=== PATIENT | female | born 1990 | race African-American/Black ===

== ENCOUNTER 2017-08-03 14:08 | Inpatient (IN) | payer OTHER ==
--- OUTSIDE RECORDS SUMMARY | 2017-08-03 14:10 | XMS REPORT ---
:1990 Author Organization [employer] Care Team Providers Name Role Phone Lydia Pa Provider Role Unavailable Allergies No Known Allergies Problems Problem Type Condition Code Onset Dates Condition Status Problem Scoliosis, unspecified scoliosis M41.9 Active type, unspecified spinal region Problem Size of fetus inconsistent with O26.843 Active dates in third trimester Problem Late care O09.30 Active Assessment Multigravida in third trimester Z34.83 Active Problem Multigravida in third trimester Z34.83 Active Assessment Late care O09.30 Active Medications No Known Medications Results No Known Results Summary Purpose [employer] Submission
[2017-08-03] MEDS ORDERED: OXYTOCIN/LR 20 UNIT/1,000 ML BAG IV ONE (14:42)
[2017-08-03] MEDS ORDERED: ACETAMINOPHEN 500 MG TAB PO PRN (14:46)
[2017-08-03] MEDS ORDERED: DOCUSATE NA/SENNA CONC 1 TAB PO PRN (14:46)
[2017-08-03] MEDS ORDERED: BISACODYL 10 MG RECTAL SUPP RECT PRN (14:46)
--- NOTE | 2017-08-03 14:49 | P.OP ---
Preoperative diagnosis: Spontaneous labor, Term romero IUP Postoperative diagnosis: Same with precipitous vaginal delivery Primary procedure: Secondary procedure: AROM Anesthesia: None Estimated blood loss: 300 cc Specimen: Placenta Findings: See operative report Operative Technique: FINDINGS: Male in LOP position. APGARS 8/9 at 1 and 5 minutes, respectively. Weight of 5 lb 13 oz. Clear amniotic fluid, placenta appeared normal. Left labial abrasion noted. Stage I: 1 h 30 min; Stage II: 17 min HISTORY OF PRESENT ILLNESS: The patient is a 27-year-old female who is a at 38w1d admitted for labor management. Labs previously reviewed and found to be normal, rubella immune, Hep B/HIV non-reactive. GBS negative status. She presented to Labor and Delivery for painful contractions and was admitted with advanced cervical dilation to 10 cm with a bulging bag. She noted positive movement and reported light vaginal bleeding. PROCEDURE DETAILS: The patient was admitted to Labor and Delivery for labor management. She declined pain control. AROM was done with clear fluid noted. She quickly felt the urge to push and started second stage. There was not enough time to obtain labs or establish an IV site. She had a spontaneous vaginal delivery of a live born male infant at 14:27 with clear fluid from an LOP position over an intact perineum. After controlled delivery of the head, the shoulders and body followed without difficulty. Bulb suctioning was done. The was placed on the patient's abdomen for skin to skin contact. Weight was 5 lb 13 oz. The Apgars were 8 at 1 minute and 9 at 5 minutes, respectively. There was no depression. was crying, vigorous, and moving all extremities. Spontaneous delivery of an intact placenta with a three-vessel cord was noted at 14:32. Patient was given 10u of IM pitocin x1 immediately following 3rd stage. On examination, there was left labial abrasion which was hemostatic. On vaginal exam, there were no noted cervical or vaginal sidewall lacerations. Estimated blood loss was 300 cc. Mother and are in recovery doing well at this time. Complications: None Fluids & blood products: None Transferred to: Recovery Room Condition: Good
--- NOTE | 2017-08-03 14:49 | P.HP ---
Certification for Inpatient Patient admitted to: Inpatient With expected LOS: >2 Midnights Patient will require the following post-hospital care: None Practitioner: I am a practitioner with admitting privileges, knowledge of patient current condition, hospital course, and medical plan of care. Services: Services provided to patient in accordance with Admission requirements found in Title 42 Section 412.3 of the Code of Federal Regulations Patient History Date of Service: 08/03/17 Reason for admission: Painful contractions. History of Present Illness: 27 y.o. at 38w1d admitted to L&D for spontaneous onset of labor. Pt reports painful contractions for the last 2 hours and reports some vaginal bleeding. She started late care at about 20 weeks, but had routine follow up since then. screening was negative. further complicated by S < D, but growth U/S done was appropriate. Medical problems include scoliosis and patient declines epidurals for this reason. She has had 2 prior natural labors. KATH: 08/16/2017. GBS negative. - Past Medical/Surgical History -: Scoliosis -: x2 (natural labor) - Social History Smoking Status: Never smoker Alcohol use: No CD- Drugs: No Caffeine use: No Place of Residence: Home Review of Systems 10-point ROS is otherwise unremarkable Physical Examination - Physical Exam General: Alert, Oriented x3, Mild distress (Due to painful contractions) Respiratory: Other (Normal effort) Cardiovascular: Normal pulses Musculoskeletal: No swelling, No tenderness Integumentary: No rashes, No breakdown Neurological: Normal speech, Normal strength at 5/5 x4 extr Female Exam - Female Pelvic Cervix: Dilation (Complete), Effacement (100%), station (1+) - Obstetrics heart rate tracing: Category 1 Contractions: Frequency (Regular) Amniotic membrane: Intact (Bulging) Assessment and Plan - Problems (Diagnosis) (1) Spontaneous onset of labor Current Visit: Yes Status: Acute Plan: Admit to L&D for expectant management. Ordered routine labs, IV start. AROM done with clear fluid noted. Anticipate . (2) Scoliosis Current Visit: Yes Status: Chronic Plan: Declines epidurals. - Advance Directives Does patient have a Living Will: No Does patient have a Durable POA for Healthcare: No
[2017-08-03] MEDS ORDERED: OXYTOCIN 10 UNIT/ML ML IV ONE (14:56)
[2017-08-03] MEDS ORDERED: Ringers Lactate 1,000 ML IV SCH (15:00)
[2017-08-03 15:14] LABS: RPR Titer ND
[2017-08-03 15:18] LABS: Absolute Lymphocytes (CBC) 1.3 K/uL (0.7-4.9); Absolute Monocytes 0.8 K/uL (0.1-1.3); Absolute Neutrophil 9.8 K/uL (1.8-8.0); Basophils % 0.4 % (0-1.3); Eosinophils % 0.7 % (0-4.4); Hematocrit 37.9 % (36.0-45.0); Lymphocytes % 10.5 % (15.3-44.8); MCH 27.8 pg (27.0-35.0); MCV 85.4 fL (80-100); MPV 9.3 fL (7.6-11.3); Monocytes % 6.3 % (3.3-12.3); RBC Red Blood Cell Count 4.44 M/uL (3.86-4.86)
[2017-08-03 15:51] VITALS: BMI 25.0
[2017-08-03] MEDS: IBUPROFEN 400 MG TAB PO PRN (19:35)
--- NOTE | 2017-08-04 07:10 | P.DS ---
Admission Date: 08/03/17 Discharge Date: 08/04/17 Disposition: ROUTINE DISCHARGE Comment: Rounding with discharge summary Discharge Condition: GOOD Reason for Admission: Painful contractions. - Problems (1) Spontaneous onset of labor Current Visit: Yes Status: Resolved (2) Scoliosis Current Visit: Yes Status: Chronic (3) Precipitous delivery, delivered (current hospitalization) Current Visit: Yes Status: Acute Brief History of Present Illness: 27 y.o. at 38w1d admitted to L&D for spontaneous onset of labor. Pt reports painful contractions for the last 2 hours and reports some vaginal bleeding. She started late care at about 20 weeks, but had routine follow up since then. screening was negative. further complicated by S < D, but growth U/S done was appropriate. Medical problems include scoliosis and patient declines epidurals for this reason. She has had 2 prior natural labors. KATH: 08/16/2017. GBS negative. Hospital Course: Pt was admitted with spontaneous labor and advanced cervical dilation. Following AROM, she precipitously delivered a healthy male vaginally. She is , pain is controlled, and lochea is described as light. She is ready for and stable to be discharged home on PPD #1. Vital Signs/Physical Exam: Temp Pulse Resp BP Pulse Ox 97.9 F 80 18 109/65 08/04/17 04:40 08/04/17 04:40 08/04/17 04:40 08/04/17 04:40 General: Alert, In no apparent distress, Oriented x3 Respiratory: Other (Normal effort) Cardiovascular: Normal pulses Gastrointestinal: Soft and benign, Non-distended, No tenderness, Other (Uterus firm and below umbilicus) Musculoskeletal: No swelling, No erythema, No tenderness Integumentary: No rashes, No breakdown Laboratory Data at Discharge: WBC 11.9 K/uL (4.3-10.9) H 08/03/17 15:00 Hgb 12.3 g/dL (12.0-15.0) 08/03/17 15:00 Hct 37.9 % (36.0-45.0) 08/03/17 15:00 Plt Count 273 K/uL (152-406) 08/03/17 15:00 Home Medications: Pnv Cmb#95/Ferrous Fumarate/FA [ Tablet] 1 each PO DAILY 08/03/17 Patient Discharge Instructions: Complete pelvic rest for 6 weeks . Notify physician of heavy bleeding, uncontrolled abdominal pain, fever/chills, or other signs of infection. See doctor in 6 weeks for exam. Diet: Regular Activity: Ad john Followup: Lydia Pa MD [ACTIVE - CAN ADMIT] -
[2017-08-04] MEDS ORDERED: Tdap (Diph,Pertuss(Acell),Tet Vac) 0.5 ML SYR IMVAC ONE (10:00)
[2017-08-04] MEDS: IBUPROFEN 400 MG TAB PO PRN (15:47)
[2017-08-04 16:14] VITALS: BP 110/66; TEMP 97.9
[2017-08-04 20:21] LABS: RPR (Rapid Plasma Reagin) NON-REACT (NON-REACT)
[2017-08-06 18:07] LABS: HBsAG Nonreactive (Nonreactive)
== END 2017-08-04 17:00 | disposition home or self-care (01) | DRG 775 ==
LOC: L&D 14:08 → 2ND-WC 14:31
PROVIDERS: ADMIT Obstetrics & Gynecology; ATTEND Obstetrics & Gynecology
PROC: 10E0XZZ Delivery of Products of Conception, External Approach (ICD-10-PCS; principal; 2017-08-03)
PROC: 10907ZC Drainage of Amniotic Fluid, Therapeutic from Products of Conception, Via Natural or Artificial Opening (ICD-10-PCS; 2017-08-03)
DX: O26.893 Other specified pregnancy related conditions, third trimester (principal); O62.3 Precipitate labor; M41.9 Scoliosis, unspecified; Z37.0 Single live birth; Z3A.38 38 weeks gestation of pregnancy
CPT/HCPCS: 36415; 85025; 86592; 86850; 86900; 86901; 87340; 88305; 88307; J2590